=== PATIENT | male | born 1975 | race Caucasian/White ===

== ENCOUNTER → 2017-12-13 | Outpatient (CLI) | payer BC ==
--- NOTE | 2017-12-14 14:56 | RADIOLOGY REPORT (SQ) ---
EXAM DESCRIPTION: MRI RT LOWER JOINT WITHOUT COMPLETED DATE/TIME: 12/13/2017 12:48 pm REASON FOR STUDY: PAIN IN R KNEE M25.561 PAIN IN RIGHT KNEE COMPARISON: None. TECHNIQUE: Rightknee images acquired and stored on PACS. Multiplanar images include fat sensitive s equences as T1, water sensitive sequences as FST2 or STIR, cartilage sensitive sequences as FSPD, and gradient echo sequences. LIMITATIONS: Motion. FINDINGS: JOINT AND BURSAE: Joint effusion. BONE CORTEX AND MARROW: No alteration of signal to suggest marrow replacement. No worrisome bone lesi ons. No occult fracture. ACL: Intact. No degeneration or ganglion cyst. PCL: Intact. MCL: Intact. No periligamentous edema or fluid. LCL: Intact. No periligamentous edema or fluid. MEDIAL MENISCUS: Poor visualization of the posterior root. LATERAL MENISCUS: No tears. No abnormal signal. MEDIAL COMPARTMENT: Cartilage is preserved. There is subchondral edema anterior margin of the medial tibial plateau. LATERAL COMPARTMENT: Cartilage preserved. No bone bruises or reactive marrow edema. No osteophytes. PATELLA: Partial-thickness fissuring of the patellar cartilage. Intact retinaculum. EXTENSOR MECHANISM: Mild signal alteration in the distal patellar tendon. SOFT TISSUES: Serrato's cyst which is partially ruptured. OTHER: No other significant finding. IMPRESSION: 1. Poor visualization of the posterior root of the medial meniscus. Cannot exclude tear. 2. Subchondral edema anteromedial tibial plateau. 3. Joint effusion. 4. Ruptured Serrato's cyst. TECHNICAL DOCUMENTATION: JOB ID: [id number] [id number]- All Rights Reserved Reading location - IP/workstation name: [email or web address]
== END ==
LOC: RAD 11:52
PROVIDERS: ATTEND Orthopaedic Surgery Sports Medicine
DX: M25.561 Pain in right knee (principal)

== ENCOUNTER → 2017-12-17 | Outpatient (CLI) | payer BC | LOC: OD 16:17 | PROVIDERS: ATTEND Orthopaedic Surgery Sports Medicine | DX: M25.649 Stiffness of unspecified hand, not elsewhere classified (principal) | CPT/HCPCS: 87070; 87075; 87205 ==